=== PATIENT | male | born 1990 | race Caucasian/White ===

== ENCOUNTER 2020-12-19 17:55 | Emergency (ER) | payer MEDICAID, SELFPAY ==
--- NOTE | ~2020-12-19 | XR_ITS ---
XR chest 2V DATE: 12/19/2020 18:56 INDICATION: Midsternal chest pain TECHNIQUE: PA and lateral views COMPARISON: None FINDINGS: Normal heart size. No pulmonary infiltrate or consolidation, pleural effusion or pulmonary vascular congestion or pneumothorax. Included skeletal structures are unremarkable. IMPRESSION: No active cardiopulmonary disease Reviewed, dictated and finalized at location A. OMETEOROLOGIST
[2020-12-19 18:00] VITALS: BP 124/90; PULSE 90; RESP 22; TEMP 37; O2SAT 100
--- NOTE | 2020-12-19 18:06 | ED.CHESTPAIN ---
HPI - Chest Pain General Chief Complaint: Chest Pain Stated Complaint: chest pain Source: patient, family and RN notes reviewed Mode of arrival: ambulatory Limitations: no limitations History of Present Illness HPI narrative: patient seems to understand and answers yes or no questions. Father's in the room who gives most of the history. Father states that patient started having some pain at approximately 4:00 p.m.. A than and the her and patient had seconds after he cleaned this plate. Pain continued. Patient answers yes when I ask if he felt sweaty all over. He also answered yes when I asked if he was short of breath. He denies nausea or radiation. complaint: chest pain Onset (ago): hour(s) (2) Timing of current episode: constant Onset: during rest Pain location: substernal Pain radiation: none Severity: severe Quality: sharp Relieving factors: nothing Exacerbating factors: nothing Associated symptoms: diaphoresis and dyspnea Treatment prior to arrival: none Risk Factors Pulmonary embolism risk factors: morbid obesity Related Data Home Medications Medication Instructions Recorded Confirmed No Home Medications 12/19/20 12/19/20 Allergies Allergy/AdvReac Type Severity Reaction Status Date / Time No Known Allergies Allergy Verified 12/19/20 18:28 Review of Systems Review of Systems: All systems reviewed & are unremarkable except as noted in HPI and below Constitutional: Constitutional: Denies chills and Denies fever(s) Respiratory: Respiratory: Denies cough Gastrointestinal: Gastrointestinal: Denies nausea and Denies vomiting Neurologic: Denies syncope and Denies headache(s) PMFSH Past Medical History Medical History (Updated 12/19/20 @ 20:05 by Brett Martinez MD) Down's syndrome Morbid obesity Surgical History Surgical History (Updated 12/19/20 @ 18:13 by Brett Martinez MD) History of bowel resection bowel obstruction as a child Social History Social History (Updated 12/19/20 @ 18:13 by Brett Martinez MD) Smoking status: Never smoker Alcohol intake: never Substance use: never Gender identity (if verbalized by the patient): Male Exam Const: General: no acute distress and alert Nutritional Appearance: well nourished and obese morbidly obese HENMT: Head: normal to inspection Ears: external ears normal Eyes: Conjunctivae: conjunctivae normal Pupils: Equal, round and reactive pupils present EOM: EOMs intact bilaterally Neck: Neck: normal visual inspection Chest: Chest palpation & inspection: normal inspection of the chest and no tenderness Resp: Effort & Inspection: normal respiratory effort Auscultation: clear to auscultation bilaterally Cardio: Rate: regular rate Rhythm: regular rhythm GI: GI Palp: Yes Soft to palpation and No Tenderness to palpation present (GI) Auscultation: normal bowel sounds Back/Spine/Pelvis: Cervical Spine: cervical ROM normal Thoracic/Lumbar Spine: thoraco-lumbar ROM normal Skin: General skin exam: normal color Rashes: no rashes Neuro: General: moves all extremities and no focal motor deficits Speech: normal speech Gait exam (Neuro): Normal gait present Extrem: General: normal to inspection and no clubbing, cyanosis or edema Psych: Appearance: grossly normal and well kempt Mental Status: mental status grossly normal Affect: normal affect Attitude: cooperative Thought content: Yes Normal thought content present Course Course Emergency Course: with all labs normal I give patient GI cocktail. He is currently sleeping had to be woken up. Vital Signs Vital signs: Vital Signs Temperature 37.0 C 12/19/20 18:00 Pulse Rate 90 12/19/20 18:00 Respiratory Rate 22 H 12/19/20 18:00 Blood Pressure 124/90 12/19/20 18:00 Pulse Oximetry 100 12/19/20 18:00 Temperature 36.4 C 12/19/20 20:16 Pulse Rate 90 12/19/20 20:16 Respiratory Rate 18 12/19/20 20:16 Blood Pressure 128/90 12/19/20 20:16 Pulse
--- NOTE | 2020-12-19 18:10 | ECG_ITS ---
Measurements Intervals [place] Rate: 89 P: 51 HI: 164 QRS: 91 QRSD: 80 T: 60 QT: 327 QTc: 400 Interpretive Statements SINUS RHYTHM RIGHT AXIS DEVIATION DELAYED PRECORDIAL R/S TRANSITION BASELINE ARTIFACT- II, III, AVF BORDERLINE ECG Electronically Signed On 12-19-2020 19:25:15 [employer]CHEOLOG[employer] CLASS[employer] by Yovani Lovelace D.O.
[2020-12-19 18:23] LABS: Basophils Percent Auto 1.2 % (0.0-1.0); Eosinophils Absolute Auto 0.05 K/mm3 (0.02-0.50); Eosinophils Percent Auto 0.6 % (1.0-6.0); Hematocrit 45.8 % (40.0-54.0); Hemoglobin 15.4 g/dL (14.0-18.0); Immature Granulocyte Absolute 0.03 K/mm3 (0.00-0.00); Immature Granulocyte Percent A 0.3 % (0.0-0.0); Lymphocytes Absolute Auto 1.67 K/mm3 (1.10-4.50); Lymphocytes Percent Auto 19.4 % (18.0-42.0); Mean Corpuscular HGB Conc 33.6 g/dL (32.0-36.0); Mean Corpuscular Hemoglobin 32.8 pg (27.0-31.0); Mean Corpuscular Volume 97.7 fL (78.0-102.0); Mean Platelet Volume 10.4 fl (8.7-11.0); Monocytes Absolute Auto 0.66 K/mm3 (0.10-0.90); Monocytes Percent Auto 7.7 % (2.0-11.0); Neutrophils Absolute Auto 6.1 K/mm3 (1.7-7.2); Neutrophils Percent Auto 70.8 % (50.0-70.0); Platelet Count Result 235 K/mm3 (150-420); Red Blood Count 4.69 M/mm3 (4.70-6.10); Red Cell Distribution Width 13.2 % (11.6-14.4); White Blood Count 8.6 K/mm3 (4.8-10.8)
--- NOTE | 2020-12-19 18:26 | PC.NURSE ---
chaperoned MD for assessment
[2020-12-19] MEDS: ASPIRIN 81 MG CHEWABLE TABLET 324 MG PO (18:36)
[2020-12-19 18:37] LABS: D Dimer 0.43 mg/L (0.19-0.50); Prothrombin Time 10.9 Seconds (9.50-12.10)
[2020-12-19 18:47] VITALS: BP 129/92; PULSE 92; RESP 18; O2SAT 98
[2020-12-19 18:49] LABS: Alanine Aminotransferase 37 U/L (16-63); Albumin Level 3.7 g/dL (3.4-5.0); Alkaline Phosphatase 91 U/L (46-116); Anion Gap 8 mmol/L (8-16); Aspartate Amino Transferase 18 U/L (15-37); Bilirubin,Total 0.5 mg/dL (0.00-1.00); Blood Urea Nitrogen 14 mg/dL (7-18); Calcium 8.8 mg/dL (8.5-10.1); Carbon Dioxide 29 mmol/L (21-32); Chloride 102 mmol/L (98-108); Estimated CRCL calculation 78 ml/min; Estimated Glomerular Filt Rate > 60; Glucose 132 mg/dL (70-99); Osmolality Calculated 290 mOsm/kg (285-295); Potassium 3.9 mmol/L (3.5-5.1); Sodium 139 mmol/L (136-145); Total Protein 8.2 g/dL (6.4-8.2); Troponin I 8.5 ng/L (0.00-60.4)
[2020-12-19 18:55] LABS: Thyroid Stimulating Hormone 2.94 uIU/mL (0.36-3.74)
[2020-12-19 19:22] VITALS: BP 128/88; PULSE 88; RESP 20; O2SAT 98
[2020-12-19] MEDS: MAG HYDROX/ALUMINUM HYD/SIMETH 30 ML, PHENobarb/HYOSCY/ATROPINE/SCOP 32.4 MG, LIDOCAINE... PO (19:37)
[2020-12-19 19:39] VITALS: BP 127/70; PULSE 87; RESP 18; O2SAT 98
[2020-12-19 20:06] VITALS: BP 130/88; PULSE 92; RESP 20; O2SAT 98
[2020-12-19 20:16] VITALS: BP 128/90; PULSE 90; RESP 18; TEMP 36.4; O2SAT 98
== END 2020-12-19 20:17 | disposition home or self-care (01) ==
PROVIDERS: Emergency Provider Emergency Medicine; PCP Family Medicine
DX: R07.89 Other chest pain (principal); Q90.9 Down syndrome, unspecified; E66.01 Morbid (severe) obesity due to excess calories
CPT/HCPCS: 36415; 71046; 80053; 83735; 84443; 84484; 85025; 85380; 85610; 93005; 99283; 99284; A9270